=== PATIENT | female | born 1950 | race Caucasian/White ===

== ENCOUNTER 2021-08-27 13:45 | Emergency (ER) | payer MEDICARE, SELFPAY ==
--- NOTE | ~2021-08-27 | XR_ITS ---
EXAMINATION: XR chest 2V DATE: 08/27/2021 14:39 INDICATION: Cough. TECHNIQUE: Frontal and lateral views of the chest were obtained. COMPARISON: Chest CT 02/21/2011 FINDINGS: A calcified right lung nodule and calcified right hilar lymph nodes are consistent with old granulomatous disease. No pleural effusion or pneumothorax. The heart size is normal. IMPRESSION: 1. No acute cardiopulmonary disease. Reviewed, dictated and finalized at location B.
[2021-08-27 13:54] VITALS: BP 125/65; PULSE 115; RESP 20; TEMP 37.1; O2SAT 97
--- NOTE | 2021-08-27 14:50 | ED.URI ---
HPI - URI/Sore Throat General Chief Complaint: Upper Respiratory Infection Stated Complaint: sore throat headache cough Time Seen by Provider: 08/27/21 14:40 Source: patient, RN notes reviewed and old records reviewed Mode of arrival: ambulatory Limitations: no limitations History of Present Illness HPI Narrative: 70-year-old female who presents to [facility] care with complaints of cough, sore throat, headache,chills for the past 2 days with some shortness of breath verbalized. Patient dnies any fevers or any nasal drainage. Patient reports that she has had Covid vaccinations and flu shot also. Patient reports that grandson has been ill also. Patient has cardiac history with previous [place] and also 7 cardiac stents and also stent in left carotid. Patient reports that she took home covid test yesterday that was negative.Patient reports that she is to call her doctor and let her know any test results. MD elicited complaint: cough, sore throat and other (Headache and some shortness of breath) Onset (ago): day(s) (2) Pain scale (0-10): 5 Treatments prior to arrival: none Related Data Home Medications Medication Instructions Recorded Confirmed amlodipine 10 mg tablet tablet 08/27/21 clopidogrel 75 mg tablet tablet 08/27/21 ezetimibe 10 mg tablet tablet 08/27/21 insulin glargine 100 unit/mL (3 ea subcut 08/27/21 mL) subcutaneous pen (Lantus Solostar U-100 Insulin) insulin lispro 100 unit/mL ml 08/27/21 subcutaneous solution isosorbide mononitrate 60 mg tablet PO 08/27/21 tablet,extended release 24 hr levothyroxine 175 mcg tablet tablet 08/27/21 losartan 100 mg tablet tablet 08/27/21 metoprolol succinate 100 mg tablet PO 08/27/21 tablet,extended release 24 hr nitrofurantoin cap 08/27/21 monohydrate/macrocrystals 100 mg capsule pantoprazole 20 mg tablet,delayed tablet PO 08/27/21 release pramipexole 0.25 mg tablet tablet 08/27/21 rosuvastatin 40 mg tablet tablet 08/27/21 valacyclovir 1 gram tablet tablet 08/27/21 Allergies Allergy/AdvReac Type Severity Reaction Status Date / Time No Known Allergies Allergy Verified 08/27/21 14:31 Review of Systems Review of Systems: CONSTITUTIONAL: Denies fever, positive for chills, or sweats. EYES: Denies visual changes, redness, or discharge. ENT: Denies rhinorrhea, congestion,positive for sore throat, no otalgia. CARDIOVASCULAR: Denies chest pain, palpitations, or edema. RESPIRATORY: Positive for cough or dyspnea. GASTROINTESTINAL: Denies abdominal pain, nausea, vomiting, or diarrhea. GENITOURINARY: Denies dysuria or hematuria. SKIN: Denies rash or itching. MUSCULOSKELETAL: Denies back pain, joint pain, or myalgia. NEUROLOGIC:Positive for headache, numbness, or weakness. PSYCHIATRIC: Positive for history of anxiety or depression. [facility] Past Medical History Medical History (Updated 08/29/21 @ 15:42 by Cheryl Green NP) CAD (coronary artery disease) Depression Diabetes Elevated cholesterol Hypertension Myocardial infarction Presence of internal carotid stent left Ulcer Surgical History Surgical History (Updated 08/29/21 @ 15:44 by Cheryl Green NP) History of bladder suspension procedure History of heart artery stent X7 History of hysterectomy History of rectal surgery prolapse Social History Social History (Updated 08/29/21 @ 15:44 by Cheryl Green NP) Smoking packs per day: 0.25 Smoking cigarettes per day: 5.0 Smoking status: Current every day smoker Alcohol intake: unknown Substance use type: does not use Living arrangements: with family Occupation/Education: retired Gender identity (if verbalized by the patient): Female Comments At time of signature agree with nursing documentation of past medical, surgical, social and family history, Ther is no pertinent family history relevant to presenting complaint. Exam Narrative: GENERAL: Ill-appearing, well-nourished, and in no acute distress. HEAD: N
== END 2021-08-27 15:21 | disposition home or self-care (01) ==
PROVIDERS: Emergency Provider Registered Nurse; PCP Internal Medicine Geriatric Medicine
DX: U07.1 COVID-19 (principal); F17.210 Nicotine dependence, cigarettes, uncomplicated; I25.10 Atherosclerotic heart disease of native coronary artery without angina pectoris; E11.9 Type 2 diabetes mellitus without complications; E78.00 Pure hypercholesterolemia, unspecified; I10 Essential (primary) hypertension; I25.2 Old myocardial infarction; Z95.5 Presence of coronary angioplasty implant and graft
CPT/HCPCS: 71046; 87081; 87426; 87804; 87880; 99213; C9803; G0463

== ENCOUNTER 2022-01-29 11:35 | Emergency (ER) | payer MEDICARE, SELFPAY ==
--- NOTE | ~2022-01-29 | XR_ITS ---
EXAMINATION: XR chest 2V DATE: 01/29/2022 12:24 INDICATION: Cough. TECHNIQUE: Frontal and lateral views of the chest were obtained. COMPARISON: Chest 2 views 08/27/2021, chest CT 02/21/2011 FINDINGS: A calcified right lung nodule is consistent with old granulomatous disease. No pleural effu nikki or pneumothorax. The heart size is normal. IMPRESSION: 1. No acute cardiopulmonary disease. Reviewed, dictated and finalized at location A. [employer]
[2022-01-29 11:40] VITALS: BP 133/61; PULSE 77; RESP 20; TEMP 36.7; O2SAT 97
--- NOTE | 2022-01-29 12:11 | ED.URI ---
HPI - URI/Sore Throat General Chief Complaint: Upper Respiratory Infection Stated Complaint: upper respiratory Time Seen by Provider: 01/29/22 12:11 Source: patient and RN notes reviewed Mode of arrival: ambulatory Limitations: no limitations History of Present Illness HPI Narrative: 71 y/o female presented for c/o headache, body aches, sinus pressure/congestion, cough, fever/chills. Reports Cough is productive green sputum and feels deep to right ribs. Onset 4 days. History of CAD, HTN, DM. not taking anything for symptoms. She denies shortness of breath, wheezing, vomiting, diarrhea. Patient is a daily smoker but has decreased due to symptoms. Denies sick contacts. MD elicited complaint: cough Related Data Home Medications Medication Instructions Recorded Confirmed amlodipine 10 mg tablet tablet 08/27/21 clopidogrel 75 mg tablet tablet 08/27/21 ezetimibe 10 mg tablet tablet 08/27/21 insulin glargine 100 unit/mL (3 ea subcut 08/27/21 mL) subcutaneous pen (Lantus Solostar U-100 Insulin) insulin lispro 100 unit/mL ml 08/27/21 subcutaneous solution isosorbide mononitrate 60 mg tablet PO 08/27/21 tablet,extended release 24 hr levothyroxine 175 mcg tablet tablet 08/27/21 losartan 100 mg tablet tablet 08/27/21 metoprolol succinate 100 mg tablet PO 08/27/21 tablet,extended release 24 hr nitrofurantoin cap 08/27/21 monohydrate/macrocrystals 100 mg capsule pantoprazole 20 mg tablet,delayed tablet PO 08/27/21 release pramipexole 0.25 mg tablet tablet 08/27/21 rosuvastatin 40 mg tablet tablet 08/27/21 valacyclovir 1 gram tablet tablet 08/27/21 Allergies Allergy/AdvReac Type Severity Reaction Status Date / Time No Known Allergies Allergy Verified 01/29/22 11:39 Review of Systems Review of Systems: CONSTITUTIONAL: Endorses malaise, chills, sweats, fever EYES: Denies visual changes, redness, or discharge ENT: Reports rhinorrhea, congestion,denies sinus pain, otalgia, sore throat CARDIOVASCULAR: Denies chest pain, palpitations, edema RESPIRATORY: Reports cough, post nasal drainage. Denies dyspnea GASTROINTESTINAL: Denies abdominal pain, nausea, vomiting, diarrhea MUSCULOSKELETAL: Endorses myalgia NEUROLOGIC: Denies headache PMFSH Past Medical History Medical History CAD (coronary artery disease) Depression Diabetes Elevated cholesterol Hypertension Myocardial infarction Presence of internal carotid stent left Ulcer Surgical History Surgical History History of bladder suspension procedure History of heart artery stent X7 History of hysterectomy History of rectal surgery prolapse Social History Social History Smoking packs per day: 0.25 Smoking cigarettes per day: 5.0 Smoking status: Current every day smoker Alcohol intake: unknown Substance use type: does not use Gender identity (if verbalized by the patient): Female Exam Narrative: GENERAL: Ill-appearing, nontoxic EYES: PERRLA, conjunctivae clear ENT: Mucous membranes moist. TMs pearly brantley with dull light reflex bilaterally; no tragal tenderness. Oropharynx erythematous without lesions or exudate, no drooling, no hoarseness, no trismus, uvula midline. NECK: Supple. No lymphadenopathy CHEST: Lungs diminished, unlabored. No respiratory distress, speaks in full sentences. HEART: Regular rate and rhythm. No murmur heard. SKIN: Warm, dry, no rash. NEURO: Alert and oriented x3. PSYCH: Normal mood and affect Course Course Emergency Course: Patient is aware of diagnosis, understands and agrees to treatment plan. Anticipatory guidance given. Patient agrees to follow-up as directed and is aware of reasons to seek care at the emergency department. Portions of this record may have been created with voice recognition software Level
== END 2022-01-29 12:45 | disposition home or self-care (01) ==
PROVIDERS: Emergency Provider Nurse Practitioner Family; PCP Internal Medicine Geriatric Medicine
DX: J10.1 Influenza due to other identified influenza virus with other respiratory manifestations (principal); F17.210 Nicotine dependence, cigarettes, uncomplicated; E11.9 Type 2 diabetes mellitus without complications; E78.00 Pure hypercholesterolemia, unspecified; I10 Essential (primary) hypertension; I25.2 Old myocardial infarction; I25.10 Atherosclerotic heart disease of native coronary artery without angina pectoris; Z95.5 Presence of coronary angioplasty implant and graft
CPT/HCPCS: 71046; 87804; 99213; G0463

== ENCOUNTER 2023-03-24 08:49 | Emergency (ER) | payer MEDICARE, SELFPAY ==
[2023-03-24 08:55] VITALS: BP 145/57; PULSE 106; RESP 24; TEMP 36.7; O2SAT 97
--- NOTE | 2023-03-24 09:00 | ED.GENADULT ---
HPI - General Adult General Chief complaint: Upper Respiratory Infection Stated complaint: cough/fever/sob/fatigue Source: patient, RN notes reviewed and old records reviewed Mode of arrival: ambulatory Limitations: no limitations History of Present Illness HPI narrative: 72-year-old female presents to [facility] with complaints sore throat, body aches, fever, cough, headache that started Wednesday. Patient taking [id number] medications with no relief. Patient denies chest pain, dizziness, weakness. Related Data Home Medications Medication Instructions Recorded Confirmed amlodipine 10 mg tablet 10 mg PO DAILY 08/27/21 03/24/23 clopidogrel 75 mg tablet 75 mg PO DAILY 08/27/21 03/24/23 ezetimibe 10 mg tablet 10 mg PO DAILY 08/27/21 03/24/23 insulin glargine 100 unit/mL (3 See Rx Instructions .Route .COMPLEX 08/27/21 03/24/23 mL) subcutaneous pen (Lantus Solostar U-100 Insulin) insulin lispro 100 unit/mL See Rx Instructions .Route .COMPLEX 08/27/21 03/24/23 subcutaneous solution isosorbide mononitrate 60 mg 60 mg PO DAILY 08/27/21 03/24/23 tablet,extended release 24 hr levothyroxine 175 mcg tablet 175 mcg PO DAILY 08/27/21 03/24/23 losartan 100 mg tablet 100 mg PO DAILY 08/27/21 03/24/23 metoprolol succinate 100 mg 100 mg PO DAILY 08/27/21 03/24/23 tablet,extended release 24 hr pantoprazole 20 mg tablet,delayed 20 mg PO BID 08/27/21 03/24/23 release pramipexole 0.25 mg tablet 0.25 mg PO BID 08/27/21 03/24/23 rosuvastatin 40 mg tablet 40 mg PO DAILY 08/27/21 03/24/23 valacyclovir 1 gram tablet 1,000 mg PO DAILY 08/27/21 03/24/23 gabapentin 300 mg capsule 300 mg PO TID 01/30/22 03/24/23 Allergies Allergy/AdvReac Type Severity Reaction Status Date / Time No Known Allergies Allergy Verified 03/24/23 09:14 Review of Systems Constitutional: Constitutional: Reports no additional constitutional complaints, Reports body ache(s), Denies chills, Reports fatigue, Reports fever(s) and Reports headache(s) Eyes: Eyes: Reports no additional eye complaints and Denies blurry vision ENT: Reports system reviewed and no additional complaints, except as documented, Denies vertigo, Denies dizziness, Denies ear discharge, Denies otalgia, Denies facial pain, Denies headache(s), Denies nasal congestion, Denies nasal discharge, Denies sinus pain, Denies sinus pressure and Reports sore throat Cardiovascular: Cardiovascular: Reports no additional cardiovascular complaints, Denies chest pain, Denies chest pain at rest, Denies rapid heart rate and Denies dyspnea Respiratory: Respiratory: Reports no additional respiratory complaints, Denies chest congestion, Reports cough, Denies pain on inspiration, Denies pain with cough and Denies dyspnea Gastrointestinal: Gastrointestinal: Denies abdominal pain, Denies diarrhea, Denies nausea and Denies vomiting Integumentary/Breasts: Skin/Breast: Denies rash Neurologic: Reports system reviewed and no additional complaints, except as documented, Denies vertigo, Denies dizziness and Denies headache(s) Endocrine: Endocrine: Denies fatigue [facility] Past Medical History Medical History CAD (coronary artery disease) Depression Diabetes Elevated cholesterol Hypertension Myocardial infarction Presence of internal carotid stent left Ulcer Surgical History Surgical History History of bladder suspension procedure History of heart artery stent X7 History of hysterectomy History of rectal surgery prolapse Social History Social History Smoking packs per day: 0.25 Smoking cigarettes per day: 5.0 Smoking status: Current every day smoker Alcohol intake: unknown Substance use type: does not use Living arrangements: with family Occupation/Education: retired Gender identity (if verbalized by the patient): Female
== END 2023-03-24 09:25 | disposition home or self-care (01) ==
PROVIDERS: Emergency Provider Registered Nurse; PCP Internal Medicine Geriatric Medicine
DX: U07.1 COVID-19 (principal); I25.10 Atherosclerotic heart disease of native coronary artery without angina pectoris; E11.9 Type 2 diabetes mellitus without complications; I10 Essential (primary) hypertension; I25.2 Old myocardial infarction; F17.210 Nicotine dependence, cigarettes, uncomplicated; Z79.899 Other long term (current) drug therapy; Z79.4 Long term (current) use of insulin
CPT/HCPCS: 87081; 87426; 87804; 87880; 99213; G0463